=== PATIENT | female | born 1975 | race Caucasian/White ===

== ENCOUNTER 2016-05-09 07:55 | Inpatient (IN) | payer OTHER ==
[2016-05-09] VITALS (24 sets, daily range): BP systolic 119–151; BP diastolic 59–81
[~2016-05-09] VITALS: Ht 154.9 cm; Wt 110.0 kg
[2016-05-09] MEDS ORDERED: ZYRTEC10 M2 PO (08:33)
[2016-05-09] MEDS ORDERED: ZANTAC150 MG PO (08:33)
[2016-05-09] MEDS ORDERED: PRENATAL TABLE1 EAC3 PO (08:33)
[2016-05-09] MEDS ORDERED: FERRALET 90 TA1 EACH PO (08:34)
[2016-05-09 10:21] LABS: EOSINOPHIL (%) 1.4 % (0-5); EOSINOPHIL COUNT 0.2 K/uL (0-0.3); HEMATOCRIT 33.3 % (36.0-46.0); IMMATURE GRANULOCYTE (%) 0.8 % (0.0-0.7); IMMATURE GRANULOCYTE COUNT 0.1 K/uL; INSTRUMENT ABS NEUTROPHIL CT 9.2 K/uL; LYMPHOCYTE COUNT 1.4 K/uL (1.0-2.8); MCH 29.8 PG (29.0-34.0); MCHC 32.7 G/DL (30.0-36.0); MEAN PLAT.VOLUME 11.6 uM^3 (9.5-12.4); MONOCYTE (%) 7.9 % (3-12); MONOCYTE COUNT 0.9 K/uL (0-0.8); NEUTROPHIL (%) 77.5 % (45-76); NEUTROPHIL COUNT 9.2 K/uL (1.8-6.4); PLATELET COUNT 189 K/uL (156-360); RBC DIS.WIDTH-CV 13.3 % (11.8-14.6); RBC DIS.WIDTH-SD 44.1 % (39-53); RED BLOOD COUNT 3.66 M/uL (3.80-5.20); WHITE BLOOD COUNT 11.9 K/uL (4.1-10.2)
[2016-05-10] VITALS (19 sets, daily range): BP systolic 118–139; BP diastolic 56–76
[2016-05-11 06:23] LABS: EOSINOPHIL (%) 1.8 % (0-5); EOSINOPHIL COUNT 0.3 K/uL (0-0.3); HEMATOCRIT 25.7 % (36.0-46.0); IMMATURE GRANULOCYTE (%) 0.9 % (0.0-0.7); IMMATURE GRANULOCYTE COUNT 0.2 K/uL; INSTRUMENT ABS NEUTROPHIL CT 13.7 K/uL; LYMPHOCYTE COUNT 2.1 K/uL (1.0-2.8); MCH 29.7 PG (29.0-34.0); MCHC 32.3 G/DL (30.0-36.0); MCV 92.1 FL (83-99); MEAN PLAT.VOLUME 11.5 uM^3 (9.5-12.4); MONOCYTE (%) 7.7 % (3-12); MONOCYTE COUNT 1.4 K/uL (0-0.8); NEUTROPHIL (%) 77.5 % (45-76); NEUTROPHIL COUNT 13.7 K/uL (1.8-6.4); PLATELET COUNT 191 K/uL (156-360); RBC DIS.WIDTH-CV 13.5 % (11.8-14.6); RBC DIS.WIDTH-SD 45.3 % (39-53)
[2016-05-11 07:24] LABS: RED BLOOD COUNT 2.79 M/uL (3.80-5.20); WHITE BLOOD COUNT 17.6 K/uL (4.1-10.2)
[2016-05-11 07:51] VITALS: BP 124/58
[2016-05-11 16:58] VITALS: BP 115/58
[2016-05-11 23:00] VITALS: BP 110/53
[2016-05-12 07:36] VITALS: BP 119/67
[2016-05-12 08:02] LABS: EOSINOPHIL (%) 1.8 % (0-5); EOSINOPHIL COUNT 0.3 K/uL (0-0.3); HEMATOCRIT 24.5 % (36.0-46.0); IMMATURE GRANULOCYTE (%) 1.6 % (0.0-0.7); IMMATURE GRANULOCYTE COUNT 0.2 K/uL; MCH 29.8 PG (29.0-34.0); MCHC 31.8 G/DL (30.0-36.0); MCV 93.5 FL (83-99); MEAN PLAT.VOLUME 11.5 uM^3 (9.5-12.4); MONOCYTE (%) 5.8 % (3-12); MONOCYTE COUNT 0.8 K/uL (0-0.8); NEUTROPHIL (%) 76.8 % (45-76); PLATELET COUNT 224 K/uL (156-360); RBC DIS.WIDTH-CV 13.4 % (11.8-14.6); RBC DIS.WIDTH-SD 46.1 % (39-53); RED BLOOD COUNT 2.62 M/uL (3.80-5.20); WHITE BLOOD COUNT 14.3 K/uL (4.1-10.2)
== END 2016-05-12 14:11 | disposition home or self-care (01) | DRG 775 ==
LOC: LDRP-OP 07:55 → 2WEST 07:56 → LDRP-OP 10:31 → 2WEST 05-10 11:18
PROVIDERS: Advanced Practice Midwife; Obstetrics & Gynecology
PROC: 10907ZC Drainage of Amniotic Fluid, Therapeutic from Products of Conception, Via Natural or Artificial Opening (ICD-10-PCS; principal; 2016-05-09)
PROC: 3E0S3CZ (ICD-10-PCS; principal; 2016-05-09)
PROC: 3E0P7GC Introduction of Other Therapeutic Substance into Female Reproductive, Via Natural or Artificial Opening (ICD-10-PCS; principal; 2016-05-09)
PROC: 00HU33Z Insertion of Infusion Device into Spinal Canal, Percutaneous Approach (ICD-10-PCS; principal; 2016-05-09)
PROC: 10E0XZZ Delivery of Products of Conception, External Approach (ICD-10-PCS; 2016-05-10)
DX: O99.214 Obesity complicating childbirth (principal); O09.513 Supervision of elderly primigravida, third trimester; E66.01 Morbid (severe) obesity due to excess calories; Z3A.39 39 weeks gestation of pregnancy; Z37.0 Single live birth; O99.02 Anemia complicating childbirth; O63.1 Prolonged second stage (of labor); O69.1XX0 Labor and delivery complicated by cord around neck, with compression, not applicable or unspecified; Z68.41 Body mass index [BMI] 40.0-44.9, adult; D62 Acute posthemorrhagic anemia; O66.0 Obstructed labor due to shoulder dystocia
CPT/HCPCS: 85025; 86850; 86900; 86901; 88307; C1755; G0378; J0595; J1200; J2405; J2795; J3010; J7120

== ENCOUNTER 2016-11-04 05:14 | Day surgery (SDC) | payer OTHER ==
[~2016-11-04] VITALS: Ht 154.9 cm; Wt 100.7 kg
[~2016-11-04 05:14] MED LIST: FERRALET 90 TA1 EACH PO; PERCOCET 5/31 TABLET PO; PRENATAL TABLE1 EAC3 PO; ZANTAC150 MG PO; ZYRTEC10 M2 PO
[2016-11-04 05:48] VITALS: BP 135/75
[2016-11-04] MEDS ORDERED: TORADOL10 MG PO (08:43)
[2016-11-04] MEDS ORDERED: ROXICODONE5 MG PO (08:43)
[2016-11-04 10:24] VITALS: BP 107/53
[2016-11-04 11:26] VITALS: BP 98/52
[2016-11-04 13:54] VITALS: BP 114/57
== END 2016-11-04 14:00 | disposition home or self-care (01) ==
LOC: SDC 05:14
DX: O90.1 Disruption of perineal obstetric wound (principal); O90.89 Other complications of the puerperium, not elsewhere classified; R10.2 Pelvic and perineal pain; L90.5 Scar conditions and fibrosis of skin; Z88.0 Allergy status to penicillin
CPT/HCPCS: J0330; J0690; J1100; J1170; J1885; J2250; J2405; J2765; J3010